=== PATIENT | female | born 1955 | race Caucasian/White ===

== ENCOUNTER → 2018-02-10 08:53 | Outpatient (CLI) | payer OTHER, SELFPAY ==
[2018-02-10 09:49] LABS: Hemoglobin A1c 5.9 % (4.2-6.3)
[2018-02-10 10:11] LABS: ALB/GLOB Ratio 1.1 RATIO (0.9-2.4); AST(SGOT) 19 U/L (15-37); Alanine Aminotransfer ALT/SGPT 24 U/L (13-56); Albumin, Serum 3.6 g/dL (3.2-5.0); Alkaline Phosphatase 65 U/L (45-117); Anion Gap 11 (5-15); BUN 18 mg/dL (7-18); BUN/Creat Ratio 21.3 RATIO (10-20); Calcium,Total 8.5 mg/dL (8.5-10.1); Chloride 104 mmol/L (98-107); Creatinine, Serum 0.84 mg/dL (0.55-1.02); EST Glomerular Filtration Rate 72 mL/min (>60); Est Glom Filt Rate - Afr Amer 87 mL/min (>60); Globulin 3.4 g/dL (2.2-4.2); Glucose 90 mg/dL (74-106); Potassium 4.3 mmol/L (3.5-5.1); Sodium Level 140 mmol/L (136-145)
[2018-02-10 10:22] LABS: Microalbumin,Random Urine 13.8 mg/L (NO RANGE EST.); Microalbumin:Creatinine Ratio 7.7 mg/g CRE (<30 mg/g CRE)
== END ==
PROVIDERS: Family Provider Preventive Medicine Occupational Medicine; PCP Preventive Medicine Occupational Medicine; Visit Provider Preventive Medicine Occupational Medicine
DX: E11.9 Type 2 diabetes mellitus without complications (principal); E78.5 Hyperlipidemia, unspecified
CPT/HCPCS: 36415; 80053; 82043; 82570; 83036

== ENCOUNTER → 2018-02-11 07:06 | Outpatient (CLI) | payer OTHER, SELFPAY ==
[2018-02-11 07:47] LABS: Cholesterol 204 mg/dL (200); High Density Lipoprotein 44 mg/dL; Triglycerides 162 mg/dL; Very Low Density Lipoprotein 32 mg/dL (5-40)
== END ==
PROVIDERS: Family Provider Preventive Medicine Occupational Medicine; PCP Preventive Medicine Occupational Medicine; Visit Provider Preventive Medicine Occupational Medicine
DX: E78.5 Hyperlipidemia, unspecified (principal)
CPT/HCPCS: 80061

== ENCOUNTER → 2018-06-16 16:01 | Outpatient (CLI) | payer MEDICARE, SELFPAY ==
[2017-06-01 20:29] VITALS: BMI 38.0
[2018-06-16 18:03] LABS: Anion Gap 7 (5-15); BUN 20 mg/dL (7-18); Calcium,Total 8.5 mg/dL (8.5-10.1); Chloride 103 mmol/L (98-107); Creatinine, Serum 0.77 mg/dL (0.55-1.02); EST Glomerular Filtration Rate 80 mL/min (>60); Est Glom Filt Rate - Afr Amer 97 mL/min (>60); Glucose 93 mg/dL (74-106); Potassium 4.4 mmol/L (3.5-5.1); Sodium Level 136 mmol/L (136-145)
== END ==
PROVIDERS: Family Provider Preventive Medicine Occupational Medicine; PCP Preventive Medicine Occupational Medicine; Referring Provider Orthopaedic Surgery; Visit Provider Orthopaedic Surgery
DX: Z01.818 Encounter for other preprocedural examination (principal)
CPT/HCPCS: 36415; 80048

== ENCOUNTER → 2018-06-24 01:11 | Outpatient (CLI) | payer MEDICARE, SELFPAY ==
--- NOTE | 2018-06-23 | GANG_PTH ---
PATIENT: JOJO MEADE LOC: [facility] U#:[id number] AGE/SX: 70/F ROOM: RE06/24/[address]: Dr. Randall Tsang MD : 1955 BED: DIS: SPEC #: [id number] RECD: 06/24/18 12:58 STATUS: KIRSTEN NEHA #: [id number] SIVA: 06/23/18 00:[address]: Randall Tsang DEPT: SURGICAL PATHOLOGY RECD BY: Khris Chaudhary ENTERED: 06/25/18 12:59 SP TYPE: GANGLION OTHR DR: Dr. Pedro Shi, [facility] Tissues: GANGLION CYST Procedures: Surgery Specimen Level III HEADER OPERATION: Excision ganglion and bone spurs left index finger PRE-OP DIAGNOSIS: Ganglion left hand, primary osteoarthritis left hand TISSUE SUBMITTED: Ganglion left index finger MICROSCOPIC DIAGNOSIS Ganglion left index finger, excision: Fragments of fibroadipose tissue, fibroconnective tissue and bone with reactive changes. Fragment of epidermis with hyperkeratosis. See comment. AZALIA:oskar 06/28/18 COMMENT No obvious changes consistent with ganglion cyst are not seen. Clinical correlation and appropriate follow up are necessary. MICROSCOPIC DESCRIPTION Slides are reviewed. GROSS DESCRIPTION Received is one container labeled with the patient's name and not further designated. The specimen consists of multiple irregular fragments of garcia soft tissue mixed with a fragment of skin that in aggregate measure 2.5 x 0.3 x 0.1 cm. The entire specimen is submitted in one cassette. / AZALIA:oskar 06/25/18 TC:5 [facility]: [id number]
== END ==
PROVIDERS: Family Provider Preventive Medicine Occupational Medicine; PCP Preventive Medicine Occupational Medicine; Visit Provider Orthopaedic Surgery
DX: M67.442 Ganglion, left hand (principal); M19.042 Primary osteoarthritis, left hand
CPT/HCPCS: 88304

== ENCOUNTER 2018-07-22 13:30 | Outpatient (RCR) | payer MEDICARE, SELFPAY ==
--- NOTE | 2018-07-12 09:33 | HP.OTEVAL ---
Patient's Visit Information JOJO MEADE is a 63 year old F, referred to Occupational Therapy by Anne Marie Campuzano, with a diagnosis of Ganglion L hand. Date of Evaluation: 07/09/18 Occupational Therapist: Mesha Byrne, JAMAICAR/Fernando, CHT - Subjective Subjective: pt. arrives and states that ganglion cist removed. pt. reports that sx was on 06/23/18 and stitches removed on 07/07/18. The cist was about the size of an eraser on the pencil and reports that it was limiting ROM. Pt. also reports that she also has fibromyalgia and arthritis that at times causes her pain. - Pain L hand 2 Pain Intensity Range: 0, 1, 2, 3, 4 - Objective Objective/Observation: wound on dorsal aspect of 2nd digit, stitches removed on 07/07/2018. - ROM MP: R 0/81, L 0/74 PIP: R 0/97, L 0/84 DIP: R 0/72, L 0/55 - Strength Transfer Worker: 13# on L and 17# on R Lateral Pinch: 7# in L and 10# in R Tripod Pinch: 5# in L and 6# in R Strength Comments: pain during strength tests - Sensation Index: not able to detect 2.83 sensation over the dorsal aspect wound 2nd digit - Nine Hole Peg Right: 22.84 sec Left: 34.49 sec - Quick DASH-Disab of Arm,Shoulder& Hand Quick DASH Score: 31.8175 - Goals Goal:: Patient will increase overall cold type artist strength by 5 lbs. by completing strengthening exercises and stretches in order to complete BADL?s and IADL?s. Patient will improve lateral and tripod grasps by 2-3 lbs. by completing strengthening and stretching exercises in order to complete BADL?s and IADL?s. Goal:: Patient will increase ROM in all joints of 2nd digit on L hand by 10 degrees by completing strengthening and stretching exercises in order to complete BADL?s and IADL?s. Goal:: Patient will have decreased swelling and report overall decrease in pain of <2 in order to complete BADL?s and IADL?s. Goal:: Patient will complete fine motor tasks in order to improve hand manipulation and increase speed demonstrated by decreased time on 9 hole peg test to less than 29 sec. for increased ability to complete BADL's and IADL's. Goal:: Patient will demo improved sensation and be able to detect normal sensation of 2.83 monofilament on dorsal aspect of L 2nd digit to be able to complete BADL's and IADL's with increased I. Goal:: Patient will demo understanding of joint protection and ECM recommendations for increase I with BADL?s and IADL?s. - Rehabilitation General Assessment: pt. presents after having ganglion cyst removed on 06/23/18. pt. presents with decreased strength, ROM, decreaased manipulation skills, decreased sensation, and decreased ability to complete BADL's and IADL's. pt. will benefit from OT services 1-2x/wk for 2 wks. Today pt. recieved hot pack to decrease pain and increase circulation to finger and educated pt. about tendon gliding exercises, joint protection, and ECM. Rehabilitation Potential: Good - Anticipated Interventions Anticipated Interventions: A/AAROM/PROM, Strengthening, Scar Care, Triggerpoint Release, Modalities, Joint Protection/Energy Conservation, Ergonomic Education, Fine Motor Coord/Nakul, ADL Training, Home Program - Visit Plan Frequency: 1-2x /Week Duration: 2 Weeks TEXT: Thank you for the opportunity to evaluate your patient. For Medicare and Medicare HMO plans, please review the plan of care and approve it. It will need to be FAXED BACK to us at [phone] for Medicare purposes. Please let me know if there are questions or concerns regarding this plan of care. Physician Signature: Date:
--- NOTE | 2018-08-31 11:36 | HP.OTDCSUM_ITS ---
HP - OT D/C Summary It has been my pleasure to treat JOJO MEADE under orders from Anne Marie Campuzano, for the diagnosis of Ganglion L hand for a total of 4 visit(s). Please see the following information for a summary of their discharge status. - Objective Objective/Function: ROM. MP 0/84. PIP 0/86. DIP -14/. 30# in L and 25# in R. lateral 11# in R and 10# in L. tripod 7# in L and 9# in R. OT noted that pt. strength and ROM improved and pt. reported increased I with BADL's and IADL's. - Goals Patient Goals: Regain Strength, Decrease Pain, Decrease Swelling/Stiffness, Improve Fine Motor Skills, Use Hand/Wrist/Arm Normally Again, Decrease Tingling/Numbness, Increase ROM, Be More Independent in ADLS, Resume Former Household Responsibilities (Cooking,Cleaning,Yard, etc.), Resume Hobbies Goal:: Patient will increase overall midlevel provider strength by 5 lbs. by completing strengthening exercises and stretches in order to complete BADL?s and IADL?s. Patient will improve lateral and tripod grasps by 2-3 lbs. by completing strengthening and stretching exercises in order to complete BADL?s and IADL?s. Goal:: Patient will increase ROM in all joints of 2nd digit on L hand by 10 degrees by completing strengthening and stretching exercises in order to complete BADL?s and IADL?s. Goal:: Patient will have decreased swelling and report overall decrease in pain of <2 in order to complete BADL?s and IADL?s. Goal:: Patient will complete fine motor tasks in order to improve hand manipulation and increase speed demonstrated by decreased time on 9 hole peg test to less than 29 sec. for increased ability to complete BADL's and IADL's. Goal:: Patient will demo improved sensation and be able to detect normal sensation of 2.83 monofilament on dorsal aspect of L 2nd digit to be able to complete BADL's and IADL's with increased I. Goal:: Patient will demo understanding of joint protection and ECM recommendations for increase I with BADL?s and IADL?s. - Plan Plan: D/C next session - D/C Information Discharge Comments: pt. made progress with strength, ROM, reported decreased pain, and reported increased I with BADL's and IADL's during this POC. pt. reported no further concerns at this time. pt. d/c with HEP. If there are questions or concerns regarding this patient's occupational therapy, please fell free to call me at [phone]. Thank you for the referral of this patient. Sincerely, Mesha Byrne, OTR/L, CHT
== END 2018-07-22 19:00 | disposition home or self-care (01) ==
LOC: OT 13:30
PROVIDERS: Family Provider Preventive Medicine Occupational Medicine; PCP Preventive Medicine Occupational Medicine; Referring Provider Physician Assistant; Visit Provider Physician Assistant
DX: M19.042 Primary osteoarthritis, left hand (principal); M67.442 Ganglion, left hand
CPT/HCPCS: 97140; 97166; 97530; 97760

== ENCOUNTER 2018-09-07 13:08 | Outpatient (RCR) | payer MEDICARE, SELFPAY | END 2018-09-30 23:59 | LOC: NS 13:08 | PROVIDERS: Family Provider Preventive Medicine Occupational Medicine; PCP Preventive Medicine Occupational Medicine; Visit Provider Orthopaedic Surgery | DX: E66.9 Obesity, unspecified (principal); Z68.35 Body mass index [BMI] 35.0-35.9, adult | CPT/HCPCS: 97802 ==

== ENCOUNTER 2018-10-12 11:38 | Outpatient (RCR) | payer MEDICARE, SELFPAY ==
[2017-06-01 20:29] VITALS: BMI 38.0
== END 2018-10-31 23:59 ==
LOC: NS 11:38
PROVIDERS: Family Provider Preventive Medicine Occupational Medicine; PCP Preventive Medicine Occupational Medicine; Visit Provider Orthopaedic Surgery
DX: E66.9 Obesity, unspecified (principal); Z68.35 Body mass index [BMI] 35.0-35.9, adult; Z71.3 Dietary counseling and surveillance
CPT/HCPCS: 97803

== ENCOUNTER 2018-11-09 14:38 | Outpatient (RCR) | payer MEDICARE, SELFPAY ==
[2017-06-01 20:29] VITALS: BMI 38.0
== END 2018-11-09 23:59 ==
LOC: NS 14:38
PROVIDERS: Family Provider Preventive Medicine Occupational Medicine; PCP Preventive Medicine Occupational Medicine; Visit Provider Orthopaedic Surgery
DX: E66.9 Obesity, unspecified (principal); Z68.35 Body mass index [BMI] 35.0-35.9, adult; Z71.3 Dietary counseling and surveillance
CPT/HCPCS: 97803

== ENCOUNTER → 2020-05-02 12:55 | Outpatient (CLI) | payer MEDICARE, SELFPAY ==
[2020-05-02 11:43] VITALS: BMI 43.2
--- NOTE | 2020-05-02 12:57 | RAD_ITS ---
STUDY: X-RAY CHEST REASON FOR EXAM: Female, 65 years old. Short of breath, coronary artery disease TECHNIQUE: PA and lateral views of the chest. COMPARISON: 05/20/2017 FINDINGS: There is no new focal consolidation. Normal size heart. Normal mediastinum and jose. Normal visualized pulmonary arteries. Normal visualized aortic arch and descending thoracic aorta. There are diffuse degenerative changes of the visualized thoracic spine. Normal visualized ribs, clavicles, and shoulders. There is no demonstrated abnormality of the visualized soft tissue structures of the upper abdomen. RAD/Chest PA and Lateral IMPRESSION: No acute cardiopulmonary process. Electronically Signed: Liat Cody MD at 16:48 EDT Tel , Service support ,
[2020-05-02 13:58] LABS: Absolute Lymphocyte Count 2.34 X10^3/uL (0.83-4.51); Absolute Neutrophil Count 4.2 X10^3/uL (2.0-7.7); Basophil# 0.08 X10^3/uL; Basophil% 1.1 % (0-1); Eosinophil# 0.26 X10^3/uL; Eosinophils% 3.4 % (0-5); Lymphocyte # 2.34 X10^3/ul (4.0); Mean Corp Hgb Conc 31.8 g/dL (32-36); Mean Corpuscular Hgb 27.6 pg (27.0-32.0); Mean Corpuscular Volume 86.6 fL (81-99); Mean Platelet Vol. 10.5 fl (6.2-12.0); Monocyte# 0.63 X10^3/uL; Monocyte% 8.4 % (0-10); NRBC Flagged by Analyzer 0 % (0-5); Neutrophil % 55.7 % (47-70); Platelet Count 284 K/mm3 (150-450); RBC Distribution Width SD 44.2 fl (35.1-43.9); Red Blood Count 5.08 M/mm3 (4.2-5.4); White Blood Count 7.5 K/mm3 (4.4-11.0)
[2020-05-02 14:31] LABS: Anion Gap 5 (5-15); BUN 15 mg/dL (7-18); BUN/Creat Ratio 18.2 RATIO (10-20); Calcium,Total 8.7 mg/dL (8.5-10.1); Chloride 106 mmol/L (98-107); Creatinine, Serum 0.82 mg/dL (0.55-1.02); EST Glomerular Filtration Rate 74 mL/min (>60); Est Glom Filt Rate - Afr Amer 89 mL/min (>60); Glucose 102 mg/dL (74-106); Sodium Level 138 mmol/L (136-145)
== END ==
PROVIDERS: PCP Preventive Medicine Occupational Medicine; Referring Provider Internal Medicine Cardiovascular Disease; Visit Provider Internal Medicine Cardiovascular Disease
DX: R07.9 Chest pain, unspecified (principal); R06.00 Dyspnea, unspecified
CPT/HCPCS: 36415; 71046; 80048; 85025

== ENCOUNTER 2020-05-09 06:47 | Day surgery (SDC) | payer MEDICARE, SELFPAY ==
[2020-05-02 11:43] VITALS: BMI 43.2
[2020-05-08 09:04] VITALS: BMI 43.2
--- NOTE | 2020-05-09 07:54 | CL.D_ITS ---
Patient Name: JOJO MEADE Study Date: 05/09/2020 Performing: Rey Paula MD Ht: 67 inches 169 cm : 1955 Wt: 271.5 lbs 123 kg Age: 65 Gender: female BSA: 2.29 PROCEDURE(S) PERFORMED [id number]/LV CLINICAL PROFILE AND INDICATIONS Indications: Suspected CAD Heart Failure: None Stress/Imaging Stress/Image Study Performed: No CAD Presentations: Symptom unlikely to be ischemic. CONCLUSIONS Normal coronary arteries Normal LV size, wall motion,and systolic function RECOMMENDATIONS Medical therapy DESCRIPTION OF PROCEDURE The patient arrived to the procedure lab. The risks and benefits of the procedure as well as a full d escription of our services here and current unavailability of surgical backup were fully explained to the patient and/or their significant other prior to the catheterization. The Timeout was completed, verifying the correct patient and procedure. The patient's procedural site was prepped and draped in the usual fashion. Local anesthetic was given subcutaneously to right radial region with Lidocaine 2% . Using a modified Seldinger technique, arterial access was obtained via the right radial artery, a 6 Fr sheath was inserted. Right Coronary Artery selective angiography was then performed in multiple v iews using a 5 Fr. 4.0 Rogers catheter. Left Coronary Artery selective angiography was performed in mu ltiple views using a 5 Fr. 4.0 Rogers catheter. Left Ventriculography was performed in JERRY projection using a 5 Fr. Pigtail catheter. LV to AO pullback pressures were then recorded.The arterial sheath was pulled and a TR Band was applied for hemostasis 10cc air inserted CORONARY ANGIOGRAPHY DOMINANCE: Right Dominant LEFT HEART ASSESSMENT Left Ventricular Ejection Fraction: by LV Gram 60 % Normal LV wall motion Normal Left Ventricular systolic function Normal Left Ventricular systolic function LEFT MAIN: Angiographically normal LEFT ANTERIOR DESCENDING ARTERY: Angiographically normal CIRCUMFLEX ARTERY: Angiographically normal RIGHT CORONARY ARTERY: Angiographically normal COMPLICATIONS No Complications PROCEDURE MEDICATIONS Fentanyl 50 mcg IV Versed 1 mg IV Versed 1 mg IV Oxygen: 2 L/min via nasal cannula Heparin diluted in 23cc Heparinized saline. Patient given 10cc IA of this solution. 05/09/2020 07:34: 45 Verapamil 2.5mg, Ntg 100mcgs, 2000 units of Heparin diluted in 23cc Heparinized saline. Patient give n 10cc IA of this solution. 05/09/2020 07:34:45 SUMMARY OF HEMODYNAMIC DATA Time AIR REST ECG 07:21:00 AO 121/67 (89) SA 07:36:38 LV 136/2, 13 07:43:57 LV 156/0, 6 07:44:03 LV 146/1, 10 07:45:17 LVp 143/-1, 9 07:45:21 AOp 149/70 (102) 07:45:26 Signed By Rey Paula MD On 05/09/2020 07:54:01 Rey Paula MD
== END 2020-05-09 09:45 | disposition home or self-care (01) ==
LOC: CLSP 06:48
PROVIDERS: PCP Internal Medicine; Referring Provider Internal Medicine Cardiovascular Disease; Visit Provider Internal Medicine Cardiovascular Disease
DX: R07.9 Chest pain, unspecified (principal); R06.09 Other forms of dyspnea; I10 Essential (primary) hypertension; E78.5 Hyperlipidemia, unspecified; E66.9 Obesity, unspecified; Z68.41 Body mass index [BMI] 40.0-44.9, adult; M79.7 Fibromyalgia; K21.9 Gastro-esophageal reflux disease without esophagitis; K58.2 Mixed irritable bowel syndrome; M19.90 Unspecified osteoarthritis, unspecified site; M51.36 Other intervertebral disc degeneration, lumbar region; M47.816 Spondylosis without myelopathy or radiculopathy, lumbar region; Z79.82 Long term (current) use of aspirin; Z79.899 Other long term (current) drug therapy
CPT/HCPCS: 93458; 99152; 99153; J7040; C1769; C1894; Q9967

== ENCOUNTER 2020-10-11 08:36 | Outpatient (RCR) | payer MEDICARE, SELFPAY ==
[2020-05-08 09:04] VITALS: BMI 43.2
[2020-10-11] MEDS: COVID-19 VACC, MRNA(PFIZER)/PF 30 MCG/0.3 ML SYRINGE IM (09:12)
[2020-11-01] MEDS: COVID-19 VACC, MRNA(PFIZER)/PF 30 MCG/0.3 ML SYRINGE IM (08:56)
== END 2021-01-08 23:59 ==
LOC: IMMUN 08:36
PROVIDERS: PCP Internal Medicine; Visit Provider Family Medicine
DX: Z23 Encounter for immunization (principal)
CPT/HCPCS: 0001A; 0002A; 91300